=== PATIENT | male | born 2005 | race Caucasian/White ===

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

== ENCOUNTER 2024-07-08 20:01 | Emergency (ER) | payer OTHER, SELFPAY ==
[2024-07-08 20:07] VITALS: BP 140/90; PULSE 79; RESP 16; TEMP 37.5; O2SAT 99; BMI 27.1
--- NOTE | 2024-07-08 20:15 | PC.NURSE ---
Poison Center contacted by this RN during patient's triage. Poison center gave following recommendations: -Irrigate R eye for additional 15 minutes -Assess pH of eye -examine eye to r/o abrasion -consider antibiotics if abrasion seen MD was updated on this information and verbal orders received to test eye pH, irrigate R eye with 1L NS, re-check eye pH after irrigation, given patient drop of Proparacaine to R eye, and have fluorescein and exam lamp prepared at bedside.
[2024-07-08] MEDS: PROPARACAINE 0.5% OPHTH SOL 1 DROPS EYE-RIGHT (21:11)
[2024-07-08] MEDS: FLUORESCEIN 1 MG STRIP EYE-RIGHT (21:11)
--- NOTE | 2024-07-08 21:12 | PC.NURSE ---
R eye irrigation completed, 1L NS used for irrigation. Patient reports improvement in eye discomfort post irrigation. pH of R eye tested again and after irrigation pH was 7 in R eye. One drop of Proparacaine administered to R eye. Patient reports irritation resolved after drop administered. Fluorescein and sharif lamp prepared at bedside and MD updated.
--- NOTE | 2024-07-08 21:36 | ED_ITS ---
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 No blurred vision. No swelling or hives or itching, no trouble breathing, no swelling to his lips or tongue. Irrigation on scene done immediately. Related Data Allergies Allergy/AdvReac Type Severity Reaction Status Date / Time No Known Drug Allergies Allergy Verified 07/08/24 21:08 Patient History alcohol intake frequency: other Exam Narrative Exam Narrative: GENERAL: Well-developed patient, in mild distress. HEAD: Atraumatic. Normocephalic. EYES: Pupils equal round and reactive. Extraocular motions intact. No scleral icterus. No injection or drainage. Topical anesthetic, fluorescein, Wood's lamp evaluation of affected right eye, no obvious foreign body, no obvious corneal abrasion or scleral abrasion. ENT: Nose without bleeding, purulent drainage. Throat without erythema, tonsillar hypertrophy or exudate. Airway patent. NECK: Trachea midline. Non tender CARDIOVASCULAR: Regular rate and rhythm without murmurs, gallops, or rubs. RESPIRATORY: Clear to auscultation. Breath sounds equal bilaterally. No wheezes, rales, or rhonchi. GASTROINTESTINAL: Abdomen soft, non-tender, nondistended. EXTREMITIES: No edema or joint tenderness. BACK: Nontender without deformity or crepitance. No flank tenderness. NEURO: AOx3. Motor functions grossly nonfocal SKIN: No rash or erythema of visible areas Initial Vital Signs Initial Vital Signs: Vital Signs Temperature 99.5 F 07/08/24 20:07 Pulse Rate 79 07/08/24 20:07 Respiratory Rate 16 07/08/24 20:07 Blood Pressure 140/90 07/08/24 20:07 Pulse Oximetry 99 07/08/24 20:07 Oxygen Delivery Method Room Air 07/08/24 20:07 Course Orders Ordered: Discontinued Medications Erythromycin (Erythromycin Ophth 1 Gm Oint) 1 applic EYE-RIGHT NOW ONE Stop: 07/08/24 21:56 Last Admin: 07/08/24 22:09 Dose: 1 applic Documented By: ELEAZAR Fluorescein Sodium (Fluorescein 1 Mg Strip) 1 mg EYE-RIGHT NOW ONE Stop: 07/08/24 21:08 Last Admin: 07/08/24 21:11 Dose: 1 mg Documented By: ELEAZAR Proparacaine HCl (Proparacaine 0.5% Ophth Lynda) 1 drops EYE-RIGHT PRN PRN PRN Reason: Irritation Last Admin: 07/08/24 21:11 Dose: 1 drop Documented By: ELEAZAR Vital Signs Vital signs: Vital Signs - 8 hr 07/08/24 22:23 Pulse Rate 67 Respiratory Rate 16 Blood Pressure 161/78 H Pulse Oximetry 98 Oxygen Delivery Method Room Air Medical Decision Making Lab Data Labs: Point of Care Testing pH,Tear Film,POC Measurement pH 7 Point of care testing: Point of Care Testing pH,Tear Film,POC Measurement pH 7 MDM Narrative Medical decision making narrative: 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 PH 7 normal. Irrigation of saline, repeat pH 7. Topical erythromycin right eye applied, dispensed for home use. Follow up local eye clinic advised. Forms filled out for [employer], claim [id number]. Discharge Plan Departure Patient Disposition: Home Clinical Impression: Acute chemical conjunctivitis of right eye Activity Restrictions/Additional Instructions: Chemical hand fur cleaner splash injury to right eye, no visual complaint, some discomfort, irrigation done on seen, pH normal here before irrigation, additional ED irrigation provided, normal pH at finish. On fluorescein stain examination there was no obvious foreign body, no abrasions to the cornea or other lesions noted. Consider topical erythromycin antibiotic today tomorrow, sample home pack given. Follow up eye Clinic advised, contact information provided for eye doctors Mike, who are not on-call but are local eye resources who can be reached tomorrow during regular hours. Return earlier to this/nearest emergency department for any change worsening symptoms or any concerns prior [employer] forearm [id number]. Referrals: Celena Reid MD [Physician] - Avinash Wang MD [Physician] - Miscellaneous,MD Patricia [Primary Care Provider] - Stand Alone Forms: Patient Portal/API/Survey
[2024-07-08] MEDS: ERYTHROMYCIN OPHTH 1 GM OINT 1 APPLIC EYE-RIGHT (22:09)
[2024-07-08 22:23] VITALS: BP 161/78; PULSE 67; RESP 16; O2SAT 98
== END 2024-07-08 22:23 | disposition home or self-care (01) ==
PROVIDERS: Emergency Provider Emergency Medicine
DX: H10.211 Acute toxic conjunctivitis, right eye (principal); X58.XXXA Exposure to other specified factors, initial encounter
CPT/HCPCS: 99283; 99284